=== PATIENT | male | born 1995 | race Two or more races ===

== ENCOUNTER 2023-04-08 08:13 | Emergency (ER) | payer SELFPAY ==
[2023-04-08] VITALS (19 sets, daily range): BP systolic 118–164; BP diastolic 77–95; PULSE 69–126; RESP 4–27; TEMP 36.6; O2SAT 98–100; BMI 26.9
--- NOTE | 2023-04-08 08:26 | ECG_ITS ---
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
[2023-04-08 08:33] LABS: Basophils Percent Auto 0.5 % (0.2-2.0); Eosinophils Absolute Auto 0.2 10^3/uL (0.0-0.7); Eosinophils Percent Auto 2.8 % (0.9-7.0); Hematocrit 46.2 % (42.0-54.0); Hemoglobin 16.6 g/dL (14.0-18.0); Immature Granulocytes Abs Auto 0.01 10^3/uL (0.00-0.03); Immature Granulocytes Pct Auto 0.2 % (0.0-0.5); Lymphocytes Absolute Auto 2.9 10^3/uL (1.2-3.8); Lymphocytes Percent Auto 48.1 % (20.5-60.0); Mean Corpuscular HGB Conc 35.9 g/dL (29.9-35.2); Mean Corpuscular Hemoglobin 31.3 pg (25.9-34.0); Mean Corpuscular Volume 87.2 fL (80.0-94.0); Mean Platelet Volume 12.1 fL (9.5-13.5); Monocytes Absolute Auto 0.5 10^3/uL (0.3-0.8); Monocytes Percent Auto 7.7 % (1.7-12.0); Neutrophils Absolute Auto 2.4 10^3/uL (1.4-6.5); Neutrophils Percent Auto 40.7 % (43.0-75.0); Platelet Count 205 10^3/uL (150-450); Red Cell Distribution Width 12.3 % (11.0-15.0)
[2023-04-08] MEDS: 0.9 % SODIUM CHLORIDE 1,000 ML 1000 ML IV (08:39)
[2023-04-08] MEDS: MECLIZINE HCL 12.5 MG TABLET 25 MG PO (08:39)
--- NOTE | 2023-04-08 08:50 | XR_ITS ---
The [address] [address] Patient Name: AWA MENENDEZ MRN: [id number] date: 1995 Sex: M Assigned Patient Location: ER Current Patient Location: ED.MAIN Accession/Order Number: [id number] Exam Date: 04/08/2023 08:45 Report Date: 04/08/2023 09:08 At the request of: JORGE LUIS GARCIA Procedure: XR chest 1V EXAMINATION: XR chest 1V HISTORY: palpitations COMPARISON: No relevant comparison available. FINDINGS: LUNGS: No significant pulmonary parenchymal abnormalities. VASCULATURE: No increased pulmonary vasculature. PLEURA: No pneumothorax, effusion, or pleural thickening. CARDIAC: No cardiomegaly or cardiac silhouette abnormality. MEDIASTINUM: No visible mass or adenopathy. BONES: No fracture or visible bone lesion. OTHER: Negative. IMPRESSION: 1. Clear lungs. No acute cardiopulmonary process. Electronically authenticated by: TOMMIE LOUISE Date: 04/08/2023 09:08
[2023-04-08 08:54] LABS: Alanine Aminotransferase 43 U/L (16-63); Albumin Globulin Ratio 1.2; Albumin Level 4.3 g/dL (3.4-5.0); Alkaline Phosphatase 86 U/L (46-116); Anion Gap 15.7; Aspartate Amino Transferase 22 U/L (15-37); BUN Creatinine Ratio 12.4; Bilirubin Total 1.3 mg/dL (0.2-1.0); Calcium 8.9 mg/dL (8.5-10.1); Carbon Dioxide 24.4 mmol/L (21.0-32.0); Chloride 104 mmol/L (98-107); Estimated GFR (African America >60 (>=60); Estimated GFR (Non-African Ame >60 (>=60); Globulin 3.6 g/dL; Glucose 115 mg/dL (74-106); Potassium 3.1 mmol/L (3.5-5.1); Sodium 141 mmol/L (136-145); Total Protein 7.9 g/dL (6.4-8.2); Troponin I High Sensitivity 43.1 pg/mL (4.0-76.1)
[2023-04-08] MEDS: DILTIAZEM HCL 25 MG/5 ML VIAL 20 MG IV (09:04)
--- NOTE | 2023-04-08 09:25 | ED.DIZZY1 ---
HPI - Dizziness General Chief Complaint: Dizziness Stated Complaint: CHEST PAIN Time Seen by Provider: 04/08/23 08:29 Source: friend Mode of arrival: Wheelchair Limitations: language barrier Limitations comment: SPEAKS BRAZILIAN History of Present Illness HPI Narrative: yesterday the patient developed dizziness and palpitations. Symptoms continued this morning so a friend brought the patient in for evaluation. No syncope but symptoms worsen with exertion. Negative PMHx. Related Data Previous Rx's Medication Instructions Recorded metoprolol succinate 25 mg 25 mg PO DAILY #30 tabs 04/08/23 tablet,extended release 24 hr metoprolol succinate 25 mg 25 mg PO DAILY paroxysmal atrial 04/08/23 tablet,extended release 24 hr fibrillation #30 tabs Allergies Allergy/AdvReac Type Severity Reaction Status Date / Time No Known Drug Allergies Allergy Verified 04/08/23 08:31 Exam Narrative Exam Narrative: Nurses notes and vital signs reviewed and patient is not hypoxic. afebrile General: Well-appearing and in no apparent distress. Skin: Warm, dry, no pallor noted. No rash. Head: Normocephalic, atraumatic. Neck: Supple, non-tender. Eye: Pupils are equal, round and EOMI. No scleral icterus. Ears, Nose, Mouth, and Throat: TM are clear, no nasal mucosal hypertrophy. Oral mucosa is moist, no posterior oropharynx erythema, uvula is mid-line Cardiovascular: irregular rate and rhythm. Respiratory: No accessory muscle use or respiratory distress. Lungs are clear to auscultation, no wheezing, rales or rhonchi Musculoskeletal: normal ROM, no calf or popliteal tenderness, no lower extremity edema/swelling GI: Abdomen is soft, non-distended. Normal bowel sounds. No tenderness to palpation. No rebound, guarding, or rigidity noted. Neurological: A&O x4. No cranial nerve dysfunction observed. No truncal ataxia. Moves all extremities. Sensation intact. Psychiatric: Cooperative and interactive. Normal mood and affect. Constitutional Vital Signs - 24 hr 04/08/23 08:23 04/08/23 08:16 04/08/23 08:18 Temperature 98 F Pulse Rate 94 H 126 H Pulse Rate [Monitor] 69 Respiratory Rate 14 19 Blood Pressure Blood Pressure [Left Arm] 164/89 H Pulse Oximetry 98 100 98 04/08/23 08:19 04/08/23 08:37 04/08/23 08:40 Temperature Pulse Rate 125 H 93 H 112 H Pulse Rate [Monitor] Respiratory Rate 27 H 4 L 20 Blood Pressure 136/91 H Blood Pressure [Left Arm] Pulse Oximetry 100 04/08/23 08:42 04/08/23 08:43 04/08/23 08:43 Temperature Pulse Rate 111 H 116 H 100 H Pulse Rate [Monitor] Respiratory Rate 15 20 17 Blood Pressure 119/95 H 119/95 H Blood Pressure [Left Arm] Pulse Oximetry 04/08/23 09:03 04/08/23 09:08 04/08/23 09:09 Temperature Pulse Rate 103 H 109 H 83 Pulse Rate [Monitor] Respiratory Rate 11 L 12 14 Blood Pressure 122/87 H Blood Pressure [Left Arm] Pulse Oximetry 04/08/23 09:33 04/08/23 09:34 04/08/23 09:34 Temperature Pulse Rate 82 88 76 Pulse Rate [Monitor] Respiratory Rate 22 19 16 Blood Pressure 133/80 H Blood Pressure [Left Arm] Pulse Oximetry 04/08/23 10:00 Temperature Pulse Rate Pulse Rate [Monitor] Respiratory Rate Blood Pressure 125/84 H Blood Pressure [Left Arm] Pulse Oximetry Course Vital Signs Vital signs: Vital Signs Pulse Rate 94 H 04/08/23 08:16 Respiratory Rate 14 04/08/23 08:16 Pulse Oximetry 100 04/08/23 08:16 Temperature 98 F 04/08/23 08:23 Pulse Rate 76 04/08/23 09:34 Respiratory Rate 16 04/08/23 09:34 Blood Pressure 125/84 H 04/08/23 10:00 Pulse Oximetry 98 04/08/23 08:23 MDM - Dizziness MDM Narrative Medical decision making narrative: 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 Blood drawn and sent for evaluation. chest x-ray obtained. The patient is a new onset atrial fibrillation. A 20 mg dose of Cardizem was given IV. This converted him to NSR. His potassium was slightly low at 3.1 so he was given oral potassium. Remainder of the workup was negative. Repeat EKG obtained with the patient in NSR I spoke with the transmission design engineer commercial pest control representative - he recommended ECHO be done before discharging the patient on Metoprolo XL 25mg daily with follow up in the [facility] Cardiology clinic. Patient made aware of our findings, diagnosis and plan for out-patient care and follow up. He is symptom-free since converting to NSR. ECHO showed normal EF and no large wall motion abnormalitis per tech. Patient discharged home. Lab Data Attestation: I reviewed the patient's lab results. Labs: Lab Results 04/08/23 Range/Units 08:23 WBC 6.0 (4.0-11.0) 10^3/uL RBC 5.30 (4.70-6.10) 10^6/uL Hgb 16.6 (14.0-18.0) g/dL Hct 46.2 (42.0-54.0) % MCV 87.2 (80.0-94.0) fL MCH 31.3 (25.9-34.0) pg MCHC 35.9 H (29.9-35.2) g/dL RDW 12.3 (11.0-15.0) % Plt Count 205 (150-450) 10^3/uL MPV 12.1 (9.5-13.5) fL Neut % (Auto) 40.7 L (43.0-75.0) % Lymph % (Auto) 48.1 (20.5-60.0) % [place] % (Auto) 7.7 (1.7-12.0) % Eos % (Auto) 2.8 (0.9-7.0) % Baso % (Auto) 0.5 (0.2-2.0) % Neut # (Auto) 2.4 (1.4-6.5) 10^3/uL Lymph # (Auto) 2.9 (1.2-3.8) 10^3/uL [place] # (Auto) 0.5 (0.3-0.8) 10^3/uL Eos # (Auto) 0.2 (0.0-0.7) 10^3/uL Baso # (Auto) 0.0 (0.0-0.1) 10^3/uL Abs Immat Gran (auto) 0.01 (0.00-0.03) 10^3/uL Imm/Tot Granulo (auto) 0.2 (0.0-0.5) % Sodium 141 (136-145) mmol/L Potassium 3.1 L (3.5-5.1) mmol/L Chloride 104 (98-107) mmol/L Carbon Dioxide 24.4 (21.0-32.0) mmol/L Anion Gap 15.7 BUN 11.0 (7.0-18.0) mg/dL Creatinine 0.89 (0.70-1.30) mg/dL Est GFR ( Amer) >60 (>=60) Est GFR (Non-Af Amer) >60 (>=60) BUN/Creatinine Ratio 12.4 Glucose 115 H (74-106) mg/dL Calcium 8.9 (8.5-10.1) mg/dL Total Bilirubin 1.3 H (0.2-1.0) mg/dL AST 22 (15-37) U/L ALT 43 (16-63) U/L Alkaline Phosphatase 86 (46-116) U/L Troponin I High Sens 43.1 (4.0-76.1) pg/mL Total Protein 7.9 (6.4-8.2) g/dL Albumin 4.3 (3.4-5.0) g/dL Globulin 3.6 g/dL Albumin/Globulin Ratio 1.2 Imaging Data Chest x-ray: Radiologist's impression: Patient Name: AWA MENENDEZ MRN: [id number] date: 1995 Sex: M Assigned Patient Location: ER Current Patient Location: ED.MAIN Accession/Order Number: [id number] Exam Date: 04/08/2023 08:45 Report Date: 04/08/2023 09:08 At the request of: JORGE LUIS GARCIA Procedure: XR chest 1V EXAMINATION: XR chest 1V HISTORY: palpitations COMPARISON: No relevant comparison available. FINDINGS: LUNGS: No significant pulmonary parenchymal abnormalities. VASCULATURE: No increased pulmonary vasculature. PLEURA: No pneumothorax, effusion, or pleural thickening. CARDIAC: No cardiomegaly or cardiac silhouette abnormality. MEDIASTINUM: No visible mass or adenopathy. BONES: No fracture or visible bone lesion. OTHER: Negative. IMPRESSION: 1. Clear lungs. No acute cardiopulmonary process. Electronically authenticated by: TOMMIE LOUISE Date: 04/08/2023 09:08 ECG Data Interpretation: EKG interpretation: Emergency Department physician interpretation. atrial fibrillation with RVR at 122bpm. Moderate right axis, Long QTc. No ST segment elevation or depression. PVC noted. Discharge Plan Discharge Chief Complaint: Dizziness Clinical Impression: Paroxysmal atrial fibrillation, Acute hypokalemia Patient Disposition: Home, Self-Care Time of Disposition Decision: 11:21 Prescriptions / Home Meds: New metoprolol succinate 25 mg tablet extended release 24 hr 25 mg PO DAILY Qty: 30 0RF metoprolol succinate 25 mg tablet extended release 24 hr 25 mg PO DAILY Qty: 30 0RF Instructions: A-fib (Atrial Fibrillation) (ED), Hypokalemia (ED) Stand Alone Forms: Portal Instructions Referrals: Physician,Non-Staff, MD [Primary Care Provider] - 1 week
[2023-04-08] MEDS: POTASSIUM CHLORIDE 10 MEQ ER TABLET 40 MEQ PO (09:49)
--- NOTE | 2023-04-08 10:32 | CA_ITS ---
Patient: AWA BRYSON Exam Date: 04/08/2023 : 1995 Gender:M Ordering : DR Richy Mccarty . Admission #: [id number] Family : Order #: [id number] CLICK HERE TO VIEW EXAM ECHOCARDIOGRAM REPORT PROCEDURE: CA ECHO LIMITED INDICATIONS: new onset atrial fibrillation - resolved COMPARISON: None. DESCRIPTION: Limited ECHOCARDIOGRAM Real-time transthoracic echocardiography with 2D and M-mode performed. QUALITY: Technical quality was good. Limited echocardiogram per physician order. LEFT VENTRICLE: Normal chamber size. Thickened septal wall. LV EF: Normal left ventricular ejection fraction, (>55%). LEFT ATRIUM: Normal chamber size. RIGHT ATRIUM: Normal chamber size. RIGHT VENTRICLE: Normal chamber size. Normal systolic function. TRICUSPID VALVE: Normal mobility and thickness. MITRAL VALVE: Normal mobility and thickness. There is no mitral annular calcification. AORTIC VALVE: Normal trileaflet appearance. No visible sclerosis. Normal leaflet mobility. AORTIC ROOT: Normal diameter and appearance. PULMONIC VALVE: Normal thickness and mobility. PERICARDIUM: No evidence of pericardial effusion. IVC: Collapses with inspirations. CONCLUSION: Global left ventricular systolic function is normal. The right ventricle is normal in size and function. A limited echocardiogram was performed. Adult Echocardiography Procedure Report Left Ventricle LVEDD (3.7 - 5.6 cm): 4.88 cm LVESD (2.2 - 4.0 cm): 3.38 cm LVIVS thickness (0.6 - 1.2 cm): 1.27 cm LVPW thickness (0.5 - 1.0 cm): 0.92 cm LVOT Diameter 2.35 cm Left Atrium LA Volume Index (2D A2C): 26.83 ml/m2 Left Atrium Systolic Dimension: 2.66 cm Mitral Valve Right Ventricle Aorta AO Root Diam: 3.56 cm Aortic Valve Tricuspid Valve Pulmonic Valve Right Atrium Right Atrium Systolic Pressure: 56.95 ml, 58.11 ml, 55.79 ml Dictated by: Afsaneh Kunz M.D. on 04/08/2023 at 13:07 Approved by: Afsaneh Kunz M.D. on 04/08/2023 at 13:09
--- NOTE | 2023-04-08 11:06 | ECG_ITS ---
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1995 Requested By: Richy Mccarty Order Number: [id number] Reading MD: RAFAEL CASTANO Measurements Intervals [place] Rate: 78 P: 65 DE: 178 QRS: 97 QRSD: 100 T: 33 QT: 352 QTc: 385 Interpretive Statements 1100 Sinus rhythm 52531 Early repolarization 7102 Moderate right axis deviation 9110 normal ECG Compared to ECG 04/08/2023 08:16:44 Early repolarization now present Sinus tachycardia no longer present First degree AV block no longer present Atrial premature complex(es) no longer present Ventricular premature complex(es) no longer present Electronically Signed On 04-09-2023 6:59:50 EDT by RAFAEL CASTANO
== END 2023-04-08 11:48 | disposition home or self-care (01) ==
PROVIDERS: Emergency Provider Emergency Medicine
DX: I48.0 Paroxysmal atrial fibrillation (principal); E87.6 Hypokalemia; Z79.899 Other long term (current) drug therapy
CPT/HCPCS: 36415; 71045; 80053; 84484; 85025; 93005; 93308; 96361; 96374; 99285

== ENCOUNTER 2023-04-14 14:51 | Outpatient (OUT) | payer SELFPAY ==
[2023-04-14 15:59] LABS: Anion Gap 11.4; BUN Creatinine Ratio 12.1; Carbon Dioxide 30.6 mmol/L (21.0-32.0); Chloride 104 mmol/L (98-107); Estimated GFR (African America >60 (>=60); Estimated GFR (Non-African Ame >60 (>=60); Glucose 96 mg/dL (74-106); Magnesium 1.9 mg/dL (1.8-2.4); Sodium 142 mmol/L (136-145); Thyroid Stimulating Hormone 2.344 uIU/mL (0.358-3.740)
== END 2023-04-14 14:52 | disposition home or self-care (01) ==
LOC: LAB 14:57
PROVIDERS: Visit Provider Nurse Practitioner
DX: R00.2 Palpitations (principal)
CPT/HCPCS: 36415; 80048; 83735; 84443

== ENCOUNTER 2024-08-03 12:00 | Emergency (ER) | payer SELFPAY ==
[2024-08-03] VITALS (11 sets, daily range): BP systolic 125–145; BP diastolic 79–93; PULSE 81–101; TEMP 36.8; O2SAT 97–98; BMI 26.0
--- NOTE | 2024-08-03 12:06 | XR_ITS ---
The [address] [address] Patient Name: AWA MENENDEZ MRN: [id number] date: 1995 Sex: M Assigned Patient Location: ER Current Patient Location: ER Accession/Order Number: [id number] Exam Date: 08/03/2024 12:20 Report Date: 08/03/2024 12:45 At the request of: YARED VELEZ Procedure: XR chest 1V EXAM: XR chest 1V HISTORY: . palpitations . COMPARISON: 07/11/2022 TECHNIQUE: Total view of the chest FINDINGS: Heart and vascularity are unremarkable. Lungs are free of focal infiltrates. Grossly no acute bony abnormality is appreciated. EKG leads overlie the chest. XR/XR chest 1V IMPRESSION: No acute heart or lung disease identified. Electronically authenticated by: AISHA TAYLOR Date: 08/03/2024 12:45
--- NOTE | 2024-08-03 12:06 | ECG_ITS ---
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
[2024-08-03 12:21] LABS: Basophils Percent Auto 0.6 % (0.2-2.0); Eosinophils Absolute Auto 0.1 10^3/uL (0.0-0.7); Eosinophils Percent Auto 2.3 % (0.9-7.0); Hematocrit 47.4 % (42.0-54.0); Hemoglobin 16.8 g/dL (14.0-18.0); Immature Granulocytes Abs Auto 0.01 10^3/uL (0.00-0.03); Immature Granulocytes Pct Auto 0.2 % (0.0-0.5); Lymphocytes Absolute Auto 2.2 10^3/uL (1.2-3.8); Lymphocytes Percent Auto 41.9 % (20.5-60.0); Mean Corpuscular HGB Conc 35.4 g/dL (29.9-35.2); Mean Corpuscular Hemoglobin 31.1 pg (25.9-34.0); Mean Corpuscular Volume 87.6 fL (80.0-94.0); Mean Platelet Volume 11.5 fL (9.5-13.5); Monocytes Absolute Auto 0.3 10^3/uL (0.3-0.8); Neutrophils Absolute Auto 2.6 10^3/uL (1.4-6.5); Platelet Count 208 10^3/uL (150-450); Red Blood Count 5.41 10^6/uL (4.70-6.10); Red Cell Distribution Width 12.2 % (11.0-15.0); White Blood Count 5.2 10^3/uL (4.0-11.0)
--- NOTE | 2024-08-03 12:31 | ED_ITS ---
HPI - Arrhythmia/Palpitations General Chief Complaint: Arrhythmia/Palpitations Stated Complaint: general weakness Time Seen by Provider: 08/03/24 12:04 Mode of arrival: walk-in Limitations: language barrier History of Present Illness HPI narrative: Present to ED complaining of palpitations. He said he has a history of heart palpitations in the past and he was on a beta-niraj for about a month but his doctor said he no longer needed it. He said every once in a while the palpitations will flareup on and off but today it lasted longer than it typically does similar to his episode a year ago. He said at that time they told him his potassium was low and that could have contributed to the heart palpitations. He denies any chest pain or shortness of breath. No leg pain or swelling. No abdominal pain nausea or vomiting. Patient is otherwise well- appearing, he is not tachycardic upon arrival here. He said it happened just prior to arrival but has settled down at this time. MD complaint: Reports rapid heart beat, heart racing and palpitations Related Data Previous Rx's ?Medication ?Instructions ?Recorded propranolol 20 mg tablet 20 mg PO DAILY 3 months #90 tabs 08/03/24 Allergies Allergy/AdvReac Type Severity Reaction Status Date / Time No Known Drug Allergies Allergy Verified 04/08/23 08:31 Review of Systems ROS Status of ROS 10 or more systems reviewed and unremark able except as noted in history and below Exam Narrative Exam Narrative: Time Seen: [] Vital Signs: [Per nurse's notes.] General: [Alert] Skin: [Warm, dry, no rash.] Head: [Normocephalic, atraumatic.] Neck: [Supple, trachea midline.] Eye: [Pupils are equal, round and reactive to light, extraocular movements are intact, normal conjunctiva.] Ears, nose, mouth and throat: oral mucosa moist. Cardiovascular: [Regular rate and rhythm, no murmur.] Respiratory: [Lungs are clear to auscultation, respirations are non-labored, breath sounds are equal.] Chest wall: [No tenderness, no deformity.] Gastrointestinal: [Soft, nontender, non distended, normal bowel sounds.] MSK: 5 out of 5 muscle strength x 4 extremities no calf pain or edema Lymphatics: [No lymphadenopathy.] Psychiatric: [Cooperative, appropriate mood & affect.] Neurological: [Alert and oriented to person, place, time, and situation, no focal neurological deficit observed.] Constitutional Vital Signs, click to edit/add: Last Vital Signs Temp 98.2 F 08/03/24 12:07 Pulse 81 08/03/24 12:50 Resp 19 08/03/24 12:50 BP 125/79 08/03/24 12:45 Pulse Ox 97 08/03/24 12:50 O2 Del Method Room Air 08/03/24 12:34 Course Vital Signs Vital signs: Vital Signs Temperature 98.2 F 08/03/24 12:07 Pulse Rate 92 H 08/03/24 12:07 Respiratory Rate 18 08/03/24 12:07 Blood Pressure 144/84 H 08/03/24 12:07 Pulse Oximetry 98 08/03/24 12:07 Oxygen Delivery Method Room Air 08/03/24 12:07 Temperature 98.2 F 08/03/24 12:07 Pulse Rate 81 08/03/24 12:50 Respiratory Rate 19 08/03/24 12:50 Blood Pressure 125/79 08/03/24 12:45 Pulse Oximetry 97 08/03/24 12:50 Oxygen Delivery Method Room Air 08/03/24 12:34 MDM - Arrhythmia/Palpitations MDM Narrative Medical decision making narrative: Patient's labs including potassium are normal. He did not have any arrhythmias here for us. EKG was nonacute. Patient did have a reported paroxysmal A-fib on his previous visit. He was on a beta-niraj at that time but only for 1 month. At this point he may need to be back on a beta-niraj to control his heart rate. He denies any drinking or drug use that could have exacerbated this arrhythmia. 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 He has not followed up with anybody or establish a primary doctor here due to the fact that he is here on a work visa. I will write him for 3 months worth of his medication because he has a difficult time with follow-up due to the fact that he is moving around. Patient and family are comfortable with care plan for home, all questions were answered with an historical interpreter and patient was stable prior to leaving. Differential Diagnosis Differential diagnosis: Likely palpitations, sinus tachycardia, supraventricular tachycardia and WPW Medical Records Attestation: I reviewed the patient's medical records. Lab Data Attestation: I reviewed the patient's lab results. Labs: Lab Results 08/03/24 08/03/24 Range/Units 12:17 12:27 WBC 5.2 (4.0-11.0) 10^3/uL RBC 5.41 (4.70-6.10) 10^6/uL Hgb 16.8 (14.0-18.0) g/dL Hct 47.4 (42.0-54.0) % MCV 87.6 (80.0-94.0) fL MCH 31.1 (25.9-34.0) pg MCHC 35.4 H (29.9-35.2) g/dL RDW 12.2 (11.0-15.0) % Plt Count 208 (150-450) 10^3/uL MPV 11.5 (9.5-13.5) fL Neut % (Auto) 50.0 (43.0-75.0) % Lymph % (Auto) 41.9 (20.5-60.0) % [place] % (Auto) 5.0 (1.7-12.0) % Eos % (Auto) 2.3 (0.9-7.0) % Baso % (Auto) 0.6 (0.2-2.0) % Neut # (Auto) 2.6 (1.4-6.5) 10^3/uL Lymph # (Auto) 2.2 (1.2-3.8) 10^3/uL [place] # (Auto) 0.3 (0.3-0.8) 10^3/uL Eos # (Auto) 0.1 (0.0-0.7) 10^3/uL Baso # (Auto) 0.0 (0.0-0.1) 10^3/uL Abs Immat Gran (auto) 0.01 (0.00-0.03) 10^3/uL Imm/Tot Granulo (auto) 0.2 (0.0-0.5) % Sodium 143 (136-145) mmol/L Potassium 4.2 (3.5-5.1) mmol/L Chloride 104 (98-107) mmol/L Carbon Dioxide 27.1 (21.0-32.0) mmol/L Anion Gap 16.1 BUN 10.0 (7.0-18.0) mg/dL Creatinine 0.92 (0.70-1.30) mg/dL Est GFR ( Amer) >60 (>=60 mL/min/1.73m^2) Est GFR (Non-Af Amer) >60 (>=60 mL/min/1.73m^2) BUN/Creatinine Ratio 10.9 Glucose 96 (74-106) mg/dL Calcium 9.2 (8.5-10.1) mg/dL Total Bilirubin 1.4 H (0.2-1.0) mg/dL AST 53 H (15-37) U/L ALT 43 (16-63) U/L Alkaline Phosphatase 84 (46-116) U/L Troponin I High Sens 38.6 (4.0-76.1) pg/mL Total Protein 7.7 (6.4-8.2) g/dL Albumin 4.3 (3.4-5.0) g/dL Globulin 3.4 g/dL Albumin/Globulin Ratio 1.3 Urine Opiates Screen Negative (NEGATIVE) Ur Buprenorphine Scrn Negative (NEGATIVE) Ur Oxycodone Screen Negative (NEGATIVE) Urine Methadone Screen Negative (NEGATIVE) Ur Barbiturates Screen Negative (NEGATIVE) U Tricyclic Antidepress Negative (NEGATIVE) Ur Phencyclidine Scrn Negative (NEGATIVE) Ur Amphetamines Screen Negative (NEGATIVE) U Methamphetamines Scrn Negative (NEGATIVE) U Benzodiazepines Scrn Negative (NEGATIVE) Urine Cocaine Screen Negative (NEGATIVE) U Cannabinoids Screen Negative (NEGATIVE) Imaging Data Chest x-ray: Radiologist's impression: ITS Impressions Chest X-Ray 08/03/24 12:06 IMPRESSION: No acute heart or lung disease identified. Electronically authenticated by: AISHA TAYLOR Date: 08/03/2024 12:45 ECG Data Attestation: I personally reviewed and interpreted this ECG as follows: Interpretation: EKG INTERPRETATION Time: [] 1211 Rate: [] 101 Rhythm: _ [] Sinus tachycardia ST segments: _ [] No acute ST elevation or depression T waves: _ [] Ectopy: _ [] P wave/[place] interval: _ [] QRS interval: _ [] QT interval: _ [] Comparison: _ [] Comparison EKG date: [] Performed by: [self] no evidence of delta wave Discharge Plan Discharge Chief Complaint: Arrhythmia/Palpitations Clinical Impression: Palpitations Patient Disposition: Home, Self-Care Time of Disposition Decision: 13:08 Condition: Good Mode of Transportation: Private Vehicle Prescriptions / Home Meds: New propranolol 20 mg tablet 20 mg PO DAILY 90 Days Qty: 90 0RF Print Language: Korean Instructions: Heart Palpitations (ED) Referrals: Physician,Non-Staff, MD [Primary Care Provider] - 1 week Discharge Date/Time: 08/03/24 13:20
[2024-08-03 12:42] LABS: Anion Gap 16.1
[2024-08-03 12:43] LABS: Alanine Aminotransferase 43 U/L (16-63); Albumin Globulin Ratio 1.3; Albumin Level 4.3 g/dL (3.4-5.0); Alkaline Phosphatase 84 U/L (46-116); Aspartate Amino Transferase 53 U/L (15-37); BUN Creatinine Ratio 10.9; Bilirubin Total 1.4 mg/dL (0.2-1.0); Calcium 9.2 mg/dL (8.5-10.1); Carbon Dioxide 27.1 mmol/L (21.0-32.0); Chloride 104 mmol/L (98-107); Estimated GFR (African America >60 (>=60 mL/min/1.73m^2); Estimated GFR (Non-African Ame >60 (>=60 mL/min/1.73m^2); Globulin 3.4 g/dL; Glucose 96 mg/dL (74-106); Potassium 4.2 mmol/L (3.5-5.1); Sodium 143 mmol/L (136-145); Total Protein 7.7 g/dL (6.4-8.2); Troponin I High Sensitivity 38.6 pg/mL (4.0-76.1)
[2024-08-03 12:52] LABS: Amphetamine Screen Urine NEGATIVE (NEGATIVE); Barbiturates Screen Urine NEGATIVE (NEGATIVE); Benzodiazepines Screen Urine NEGATIVE (NEGATIVE); Buprenorphine Screen Urine NEGATIVE (NEGATIVE); Cannabinoid Screen Urine NEGATIVE (NEGATIVE); Cocaine Screen Urine NEGATIVE (NEGATIVE); Methadone Screen Urine NEGATIVE (NEGATIVE); Methamphetamines Screen Urine NEGATIVE (NEGATIVE); Opiate Screen Urine NEGATIVE (NEGATIVE); Oxycodone Screen Urine NEGATIVE (NEGATIVE); Phencyclidine Screen Urine NEGATIVE (NEGATIVE); Tricyclic Antidepressant Urine NEGATIVE (NEGATIVE)
== END 2024-08-03 13:20 | disposition home or self-care (01) ==
PROVIDERS: Emergency Provider Emergency Medicine
DX: R00.2 Palpitations (principal)
CPT/HCPCS: 36415; 71045; 80053; 80307; 84484; 85025; 93005; 99285